=== PATIENT | male | born 1995 | race Caucasian/White ===

== ENCOUNTER 2016-10-03 13:22 | Emergency (ER) | payer MEDICAID, OTHER ==
[~2016-10-03] VITALS: Ht 170.2 cm; Wt 75.0 kg
[2016-10-03 13:34] VITALS: Ht 170.2 cm; Wt 75.0 kg
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
[2016-10-03] MEDS ORDERED: IBUPROFEN 600 MG TAB PO ONE (15:00)
--- NOTE | 2016-10-03 16:33 | RADRPT ---
PROCEDURE: XR Lumbar Spine. CLINICAL INDICATION: Lumbar spine pain. TECHNIQUE: AP, lateral, and cone-down lateral view of the lumbar spine were obtained. COMPARISON: No prior studies are available for comparison. FINDINGS: There is a moderate right convex scoliosis centered at L2-3. The alignment is within normal limits on the lateral view. There is 6 lumbar-type vertebral bodies with well formed discs between the S1- S2 vertebral bodies The vertebral body heights and marrow density are normal in appearance. There is preservation of the intervertebral disc spaces. There is no significant facet spondylosis. The neural foramina appear patent. The paraspinal soft tissues unremarkable. The posterior elements ar e unremarkable IMPRESSION: 1. Moderate right convex scoliosis centered at L2-3. 2. No evidence of fracture or significant degenerative disc disease. 3. 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 RPTAT: HGAS .Jr Watkins MD, Date Time Electronically viewed and signed by .Jr Watkins MD, on 10/03/2016 16:33 .S/
[2016-10-03] MEDS ORDERED: NAPR-260 PO (16:39)
== END 2016-10-03 17:11 | disposition home or self-care (01) ==
LOC: FTE 13:22
DX: M54.5 Low back pain (principal)
CPT/HCPCS: 72100; Z7502; Z7610

== ENCOUNTER 2017-01-20 05:32 | Emergency (ER) | payer SELFPAY ==
[~2017-01-20] VITALS: Ht 170.2 cm; Wt 76.7 kg
[~2017-01-20 05:32] MED LIST: NAPR-260 PO
[2017-01-20 05:33] VITALS: Ht 170.2 cm; Wt 76.7 kg
[2017-01-20 06:02] VITALS: BP 120/80; PULSE 82; RESP 18; TEMP 97.4
[2017-01-20] MEDS ORDERED: PANT40TA3 PO (06:13)
[2017-01-20] MEDS ORDERED: LIDOCAINE/MYLANTA 40 ML BTL PO ONE (06:30)
[2017-01-20] MEDS ORDERED: PANTOPRAZOLE (EC) 40 MG TAB PO ONE (06:30)
--- NOTE | 2017-01-20 07:25 | ERD ---
ER Documentation Chief Complaint Chief Complaint ABD PAIN WITH N/V WITH BLOOD NOTED HPI Patient is a 21-year-old male with no medical problems who presents with abdominal pain. The patient said that he was at the gym this morning at 1 AM and felt like he was having a migraine headache. He then started with abdominal pain on the left upper quadrant. He said that it felt similar to previous migraines. He said the pain hurt worse when he moved to the left. He had nausea and vomiting. He had midepigastric pain as well. He said initially this pain started after Monday night after drinking alcohol. He has had no treatment yet for the pain. Upon review of old medical records this is his third visit to the ER for various complaints. He does not currently have a primary doctor. ROS All systems reviewed and are negative except as per history of present illness. Medications Home Meds Active Scripts Pantoprazole* (Protonix*) 40 Mg Tablet.dr, 40 MG PO DAILY, #20 TAB Prov:ANJUM TRAN MD 01/20/17 Naproxen* (Naprosyn*) 500 Mg Tablet, 500 MG PO BID Y for PAIN AND/OR INFLAMMATION, #30 TAB Prov:JOHNY ROSE PA-C 10/03/16 Allergies Allergies: Coded Allergies: No Known Allergies (Unverified Allergy, Unknown, 10/25/13) PMhx/Soc Medical and Surgical Hx: pt denies Medical Hx, pt denies Surgical Hx History of Surgery: Yes (RIGHT ARM AND NECK CYSTS REMOVAL) Anesthesia Reaction: No Hx Neurological Disorder: No Hx Respiratory Disorders: No Hx Cardiac Disorders: No Hx Psychiatric Problems: No Hx Miscellaneous Medical Probl: No Hx Alcohol Use: No Hx Substance Use: No Hx Tobacco Use: No Smoking Status: Never smoker FmHx Family History: No diabetes Physical Exam Vitals Vital Signs Date Time Temp Pulse Resp B/P Pulse Ox O2 Delivery O2 Flow Rate FiO2 01/20/17 06:02 97.4 82 18 120/80 98 Room Air 01/20/17 05:33 97.4 88 18 136/87 98 Physical Exam Const: No acute distress Head: Atraumatic Eyes: Normal Conjunctiva ENT: Normal External Ears, Nose and Mouth. Neck: Full range of motion..~ No meningismus. Resp: Clear to auscultation bilaterally Cardio: Regular rate and rhythm, no murmurs Abd: Soft, midepigastric tenderness to palpation without rebound or guarding Skin: No petechiae or rashes Back: No midline or flank tenderness Ext: No cyanosis, or edema Neur: Awake and alert Psych: Normal Mood and Affect Results 24 hrs Current Medications Medications (Trade) Dose Ordered Sig/Agus Route PRN Reason Start Time Stop Time Status Last Admin Dose Admin Miscellaneous Medication (Gi Cocktail (2)) 40 ml ONCE ONCE PO 01/20/17 06:30 01/20/17 06:30 DC Pantoprazole (Protonix Tab) 40 mg ONCE ONCE PO 01/20/17 06:30 01/20/17 06:30 DC Procedures/MDM Smoking Cessation Therapy: Pt. was lectured for greater than 3 minutes on the health risks of continued smoking and the benefits of cessation. Patient is a 21-year-old male with no medical problems who presents with epigastric pain. His symptoms are very consistent with gastritis versus ulcer versus esophagitis or reflux. I doubt acute coronary syndrome, cholecystitis, pancreatitis, appendicitis, or bowel obstruction. I believe outpatient management is appropriate at this time. The patient was given a GI cocktail and Protonix. He will be discharged with a prescription for Protonix. He can return for any worsening symptoms. He was told to stop his smoking and alcohol use. He can return sooner for any worsening symptoms. The patient understands the plan and is okay for discharge at this time. He will need to follow-up the local clinics within 24 hours as he does not currently have a primary doctor. Departure Diagnosis: Primary Impression: Abdominal pain Abdominal location: epigastric Qualified Code: R10.13 - Epigastric pain Condition: Fair Patient Instructions: Abdominal Pain Referrals: [facility] YOU HAVE RECEIVED A MEDICAL SCREENING EXAM AND THE RESULTS INDICATE THAT YOU DO NOT HAVE A CONDITION THAT REQUIRES URGENT TREATMENT IN THE EMERGENCY DEPARTMENT. FURTHER EVALUATION AND TREATMENT OF YOUR CONDITION CAN WAIT UNTIL YOU ARE SEEN IN YOUR DOCTORS OFFICE WITHIN THE NEXT 1-2 DAYS. IT IS YOUR RESPONSIBILITY TO MAKE AN APPOINTMENT FOR FOLOW-UP CARE. IF YOU HAVE A PRIMARY DOCTOR --you should call your primary doctor and schedule an appointment IF YOU DO NOT HAVE A PRIMARY DOCTOR YOU CAN CALL OUR PHYSICIAN REFERRAL HOTLINE AT IF YOU CAN NOT AFFORD TO SEE A PHYSICIAN YOU CAN CHOSE FROM THE FOLLOWING [facility] [id number] [facility] [address] [facility] [address] [facility] [address] [facility] [address] [facility]. [facility] [address] Additional Instructions: FOLLOW UP WITH YOUR PRIMARY CARE PHYSICIAN TOMORROW.Return to this facility if you are not improving as expected. ANJUM TRAN MD Jan 20, 2017 07:25
== END 2017-01-20 06:21 | disposition home or self-care (01) ==
LOC: E/R 05:32
DX: R10.13 Epigastric pain (principal)
CPT/HCPCS: 99283